=== PATIENT | female | born 1990 | race African-American/Black ===

== ENCOUNTER 2025-01-06 17:14 | Emergency (ER) | payer SELFPAY ==
[~2025-01-06] VITALS: Ht 157.5 cm; Wt 81.6 kg
[2025-01-06 17:35] VITALS: PULSE 90; RESP 18; TEMP 97.7
[2025-01-06] MEDS ORDERED: TRIAMCINOLONE A15 G1 TOP ×2 (17:54→17:56)
[2025-01-06] MEDS ORDERED: PREDNISONE50 MG PO (17:54)
[2025-01-06] MEDS ORDERED: MACROBID 100 M100 MG PO (18:05)
[2025-01-06] MEDS ORDERED: CEPHALEXIN 500 MG CAP PO ONE (18:15)
[2025-01-06] MEDS ORDERED: DEXAMETHASONE SOD PHOS INJ 4 MG/ML SDV ONE (18:18)
[2025-01-06] MEDS ORDERED: NITROFURANTOIN MACROCRYSTALS 100 MG CAP PO ONE (18:30)
[2025-01-06] MEDS: NITROFURANTOIN 50 MG CAP PO ONE (18:51)
[2025-01-06] MEDS: DEXAMETHASONE SOD PHOS 10 MG/1 ML VIAL IM ONE (18:51)
[2025-01-06 18:56] VITALS: BP 136/83; RESP 18; O2SAT 99
== END 2025-01-06 18:57 | disposition home or self-care (01) ==
LOC: FSED 17:37
DX: L30.9 Dermatitis, unspecified (principal); N39.0 Urinary tract infection, site not specified
CPT/HCPCS: 81003; 81025; 99283; J1100

== ENCOUNTER 2025-06-04 16:21 | Emergency (ER) | payer SELFPAY ==
[~2025-06-04] VITALS: Ht 157.5 cm; Wt 77.6 kg
[~2025-06-04 16:21] MED LIST: ACULAR5 ML OU; MACROBID 100 M100 MG PO; PREDNISONE50 MG PO; TRIAMCINOLONE A15 G1 TOP
[2025-06-04 16:26] VITALS: PULSE 65; RESP 18; TEMP 98.5
[2025-06-04] MEDS ORDERED: TRIAMCINOLONE A15 G1 TOP (17:05)
[2025-06-04 17:27] VITALS: BP 145/95; PULSE 65; RESP 18; TEMP 98.5; O2SAT 99
[2025-06-04] MEDS: DEXAMETHASONE SOD PHOS INJ 4 MG/ML SDV IM ONE (17:27)
== END 2025-06-04 17:33 | disposition home or self-care (01) ==
LOC: FSED 17:03
DX: L30.9 Dermatitis, unspecified (principal)
CPT/HCPCS: 96372; 99283; J1100